=== PATIENT | male | born 1965 | race Caucasian/White ===

== ENCOUNTER 2017-03-08 11:34 | Emergency (ER) | payer BC, OTHER ==
[~2017-03-08] VITALS: Ht 172.7 cm; Wt 63.5 kg
[~2017-03-08 11:34] MED LIST: ATOR10 PO; CITA40 PO; DULO30 PO; METF500 PO; PANT40IN3 PO; QUET100 PO; TRAZ50TA78 PO; ZYPR10TA9 PO
[2017-03-08 11:36] VITALS: BP 200/103; PULSE 100; RESP 20; TEMP 98.4; O2SAT 100
--- NOTE | 2017-03-08 12:00 | PD ---
HPI Chief Complaint: Cold / Flu Symptoms Time Seen by Provider: 11:59 Travel History International Travel<30 days: No Contact w/Intl Traveler<30days: No Traveled to known affect area: No History of Present Illness HPI 52-year-old male with history of recurrent bronchitis, reflux, and type 2 diabetes, who presents with 2 week history of cough, off and on fevers, sinus congestion, postnasal drip, and reflux. Complains of increased shortness of breath with exertion as well as wheezing. Patient previously was using an albuterol inhaler but hasn't been for months. Patient also states she's been off his regular meds for several months due to moving from [facility] and not having insurance. Patient states his sore throat is usually worse first thing in the morning. He states she's been coughing up mostly clear to whitish phlegm. Patient continues to smoke a pack a day. He reports of fever of 101, last night. Patient has no known drug allergies. PFSH Past Medical History Anxiety: Yes Depression: Yes Heart Rhythm Problems: No Cardiac Catheterization: No Cardiovascular Problems: Yes (hyperlipidemia) High Cholesterol: No Congestive Heart Failure: No Diabetes: Yes Diminished Hearing: No Endocrine: Yes Genitourinary: No Herniated Disk: Yes (lower back) Immune Disorder: No Psychiatric: Yes Reproductive: No Respiratory: No Immunizations Current: Yes Past Surgical History Coronary Artery Bypass Graft: No Tonsillectomy: Yes Social History Alcohol Use: No Tobacco Use: Yes (02/20 PPD) Substance Use: No (Denies) Allergies-Medications (Allergen,Severity, Reaction): Coded Allergies: No Known Allergies (Unverified Adverse Reaction, Unknown, 03/08/17) Reported Meds & Prescriptions Reported Meds & Active Scripts Active Omeprazole 40 Mg Cap 40 Mg PO DAILY Ventolin Hfa 18 GM Inh (Albuterol Sulfate) 90 Mcg/Act Aer 2 Puff INH Q4-6H PRN Prednisone 20 Mg Tab 20 Mg PO DAILY 7 Days Azithromycin 250 Mg Tab 250 Mg PO DIRECTED Take 2 tabs (500 mg) on day 1 then 1 tab daily x 4 days. Reported Metformin (Metformin HCl) 500 Mg Tab 500 Mg PO BIDPC Atorvastatin (Atorvastatin Calcium) 10 Mg Tab 10 Mg PO HS Review of Systems Except as stated in HPI: all other systems reviewed are Neg General / Constitutional: Positive: Fever, Chills Eyes: No: Visual changes HENT: Positive: Headaches, Sore Throat, Rhinitis, Rhinorrhea, Congestion, No: Vertigo, Lightheadedness, Nosebleed, Neck Stiffness, Neck Pain, Dental Difficulties, Earache Cardiovascular: No: Chest Pain or Discomfort Respiratory: Positive: Cough, Shortness of Breath, Wheezing, No: Sneezing, Orthopnea Gastrointestinal: Positive: Dysphagia, No: Nausea, Vomiting, Diarrhea, Abdominal Pain, Indigestion, Loss of Appetite Genitourinary: No: Dysuria Musculoskeletal: No: Pain Skin: No Rash Neurologic: No: Weakness Psychiatric: No: Depression Endocrine: No: Polydipsia Hematologic/Lymphatic: No: Easy Bruising Physical Exam Narrative GENERAL: Patient appears in mild distress. SKIN: Warm and dry. Patient has mild pallor. Normal turgor. HEAD: Atraumatic. Normocephalic. EYES: Pupils equal and round. No scleral icterus. No injection or drainage. ENT: No nasal bleeding or discharge. Mucous membranes pink and moist. TMs are dull bilaterally but no injection. Patient has moderate sinus tenderness to palpation bilaterally. Posterior pharynx is slightly irritated no no significant erythema, tonsillitis, uvula is midline. Airway is patent. NECK: Trachea midline. No JVD. Supple and nontender without significant lymphadenopathy. CARDIOVASCULAR: Regular rate and rhythm. RESPIRATORY: No accessory muscle use. Clear to auscultation. Breath sounds equal bilaterally. GASTROINTESTINAL: Abdomen soft, non-tender, nondistended. Hepatic and splenic margins not palpable. MUSCULOSKELETAL: Extremities without clubbing, cyanosis, or edema. No obvious deformities. NEUROLOGICAL: Awake and alert. No obvious cranial nerve deficits. Motor grossly within normal limits. Five out of 5 muscle strength in the arms and legs. Normal speech. PSYCHIATRIC: Appropriate mood and affect; insight and judgment normal. Data Data Last Documented VS Vital Signs Date Time Temp Pulse Resp B/P (MAP) Pulse Ox O2 Delivery O2 Flow Rate FiO2 03/08/17 11:36 98.4 100 20 200/103 (135) 100 Room Air Orders Orders Complete Blood Count With Diff (03/08/17 12:08) Comprehensive Metabolic Panel (03/08/17 12:08) Urinalysis - C+S If Indicated (03/08/17 12:08) Iv Access Insert/Monitor (03/08/17 12:08) Ecg Monitoring (03/08/17 12:08) Oximetry (03/08/17 12:08) Oxygen Administration (03/08/17 12:08) Chest, Single Ap (03/08/17 12:08) Sodium Chloride 0.9% Flush (Ns Flush) (03/08/17 12:15) Methylprednisolone So Succ Inj (Solumedr (03/08/17 12:15) Albuterol-Ipratropium Neb (Duoneb Neb) (03/08/17 12:15) Ceftriaxone Inj (Rocephin Inj) (03/08/17 12:15) Azithromycin (Zithromax) (03/08/17 12:15) Labs Laboratory Tests Test 03/08/17 12:18 03/08/17 12:30 White Blood Count 6.5 TH/MM3 Red Blood Count 4.20 MIL/MM3 Hemoglobin 14.2 GM/DL Hematocrit 42.6 % Mean Corpuscular Volume 101.6 FL Mean Corpuscular Hemoglobin 33.9 PG Mean Corpuscular Hemoglobin Concent 33.4 % Red Cell Distribution Width 16.7 % Platelet Count 265 TH/MM3 Mean Platelet Volume 7.7 FL Neutrophils (%) (Auto) 59.5 % Lymphocytes (%) (Auto) 33.2 % Monocytes (%) (Auto) 6.7 % Eosinophils (%) (Auto) 0.3 % Basophils (%) (Auto) 0.3 % Neutrophils # (Auto) 3.9 TH/MM3 Lymphocytes # (Auto) 2.2 TH/MM3 Monocytes # (Auto) 0.4 TH/MM3 Eosinophils # (Auto) 0.0 TH/MM3 Basophils # (Auto) 0.0 TH/MM3 CBC Comment DIFF FINAL Differential Comment Blood Urea Nitrogen 9 MG/DL Creatinine 0.76 MG/DL Random Glucose 107 MG/DL Total Protein 8.5 GM/DL Albumin 3.4 GM/DL Calcium Level 9.2 MG/DL Alkaline Phosphatase 83 U/L Aspartate Amino Transf (AST/SGOT) 20 U/L Alanine Aminotransferase (ALT/SGPT) 15 U/L Total Bilirubin 0.3 MG/DL Sodium Level 138 MEQ/L Potassium Level 4.2 MEQ/L Chloride Level 105 MEQ/L Carbon Dioxide Level 26.4 MEQ/L Anion Gap 7 MEQ/L Estimat Glomerular Filtration Rate 107 ML/MIN Urine Color YELLOW Urine Turbidity CLEAR Urine pH 6.0 Urine Specific [place] 1.034 Urine Protein 30 mg/dL Urine Glucose (UA) NEG mg/dL Urine Ketones TRACE mg/dL Urine Occult Blood NEG Urine Nitrite NEG Urine Bilirubin NEG Urine Urobilinogen 2.0 MG/DL Urine Leukocyte Esterase NEG Urine RBC 3 /hpf Urine WBC 2 /hpf Urine Mucus MANY /lpf Microscopic Urinalysis Comment CULT NOT INDICATED MDM Medical Decision Making Medical Screen Exam Complete: Yes Emergency Medical Condition: Yes Medical Record Reviewed: Yes Differential Diagnosis Esophageal reflux disease. Pharyngitis. Sinusitis. Bronchitis. COPD with exacerbation. Wheezing. Narrative Course Patient is medically stable at time of exam. Labs ordered include CBC, CMP, and urinalysis. Labs are unremarkable. Chest x-ray shows no acute process per radiologist. Patient is given 125 mg Solu-Medrol IV as well as DuoNeb 3. Patient is given Rocephin 1000 mg IV. Patient feels improved after the above treatment. Patient is given 500 mg azithromycin by mouth now. Patient continued on azithromycin Dosepak. Patient continued on prednisone 20 mg daily for 7 days. Patient continued on albuterol metered-dose inhaler 2 puffs every 4-6 hours when necessary. Patient is given omeprazole 40 mg daily #30 Diagnosis Primary Impression: Acute wheezy bronchitis Additional Impressions: Esophageal reflux disease Qualified Codes: K21.9 - Gastro-esophageal reflux disease without esophagitis Tobacco abuse Referrals: [facility] Patient Instructions: Acute Bronchitis (ED), Diet for Stomach Ulcers and Gastritis (ED), General Instructions, How to Stop Smoking (DC), How to Use a Metered-Dose Inhaler (ED) Additional Instructions: Labs are unremarkable. Chest x-ray shows no acute process per radiologist. Patient is given 125 mg Solu-Medrol IV as well as DuoNeb 3. Patient is given Rocephin 1000 mg IV. Patient feels improved after the above treatment. Patient is given 500 mg azithromycin by mouth now. Patient continued on azithromycin Dosepak. Patient continued on prednisone 20 mg daily for 7 days. Patient continued on albuterol metered-dose inhaler 2 puffs every 4-6 hours when necessary. Patient is given omeprazole 40 mg daily #30 Med/Other Pt SpecificInfo: Prescription(s) given Scripts Omeprazole (Omeprazole) 40 Mg Cap 40 MG PO DAILY, #30 CAP 0 Refills Prov: Mt Colunga MD 03/08/17 Albuterol 18 GM Inh (Ventolin Hfa 18 GM Inh) 90 Mcg/Act Aer 2 PUFF INH Q4-6H Y for SHORTNESS OF BREATH, #1 INHALER 0 Refills Prov: Mt Colunga MD 03/08/17 Prednisone (Prednisone) 20 Mg Tab 20 MG PO DAILY for 7 Days, #7 TAB 0 Refills Prov: Mt Colunga MD 03/08/17 Azithromycin (Azithromycin) 250 Mg Tab 250 MG PO DIRECTED for Infection, #6 TAB 0 Refills Take 2 tabs (500 mg) on day 1 then 1 tab daily x 4 days. Prov: Mt Colunga MD 03/08/17 Disposition: 01 DISCHARGE HOME Condition: Stable Rafael De Dios Mar 08, 2017 12:00
[2017-03-08] MEDS ORDERED: METF500T PO (12:07)
[2017-03-08] MEDS ORDERED: ATOR10TA15 PO (12:07)
[2017-03-08] MEDS ORDERED: SODIUM CHLORIDE 0.9% FLUSH 10 ML FLUSH IVF PRN (12:15)
[2017-03-08] MEDS ORDERED: AZITHROMYCIN 250 MG TAB PO ONE (12:15)
[2017-03-08] MEDS ORDERED: cefTRIAXone INJ 1,000 MG in SODIUM CHLORIDE 0.9% INJ 100 ML IV ONE (12:15)
[2017-03-08] MEDS ORDERED: methylPREDNISolone SOD SUCC 125 MG/2 ML VIAL IV PUSH ONE (12:15)
[2017-03-08 12:32] LABS: AUTOMATED NEUTROPHIL # 3.9 TH/MM3 (1.8-7.7); BASOPHIL % 0.3 % (0.0-2.0); EOSINOPHIL % 0.3 % (0.0-4.0); HEMATOCRIT 42.6 % (39.0-51.0); HEMOGLOBIN 14.2 GM/DL (13.0-17.0); LYMPH % 33.2 % (9.0-44.0); LYMPHOCYTE # 2.2 TH/MM3 (1.0-4.8); MEAN CELL VOLUME 101.6 FL (80.0-100.0); MEAN CORPUSCULAR HEMOGLOBIN 33.9 PG (27.0-34.0); MEAN CORPUSCULAR HGB CONC 33.4 % (32.0-36.0); MEAN PLATELET VOLUME 7.7 FL (7.0-11.0); MONO % 6.7 % (0.0-8.0); MONOCYTE # 0.4 TH/MM3 (0-0.9); NEUT % 59.5 % (16.0-70.0); PLATELET COUNT 265 TH/MM3 (150-450); RED CELL DISTRIBUTION WIDTH 16.7 % (11.6-17.2); WHITE BLOOD COUNT 6.5 TH/MM3 (4.0-11.0)
--- NOTE | 2017-03-08 12:45 | RADRPT ---
EXAM DATE/TIME: 03/08/2017 12:37 [facility] COMPARISON: CHEST SINGLE AP, February 09, 2014, 10:54. CHEST SINGLE AP, August 05, 2015, 21:51. INDICATIONS : Cough and fever for 2 weeks. MEDICAL HISTORY : None. SURGICAL HISTORY : None. ENCOUNTER: Initial ACUITY: 2 weeks PAIN SCORE: 2/10 LOCATION: Bilateral chest FINDINGS: 2 AP erect portable views of the chest were obtained and demonstrates the lungs to be symmetrically a erated without evidence of mass, infiltrate or effusion. The cardiomediastinal contours are unremark able. Osseous structures are intact. Bilateral nipple shadow's are noted. CONCLUSION: Stable appearance with no evidence of pneumonia. Tae Pablo MD on March 08, 2017 at 12:41 Board Certified Radiologist. This report was verified electronically.
[2017-03-08] MEDS: RESP: ALBUTEROL 2.5 MG/IPRATROPIUM 0.5 MG NEB (SCH) INH (12:48)
[2017-03-08 12:58] LABS: ALBUMIN 3.4 GM/DL (3.4-5.0); ALT (GPT) 15 U/L (12-78); AST (GOT) 20 U/L (15-37); BICARBONATE 26.4 MEQ/L (21.0-32.0); BLOOD UREA NITROGEN 9 MG/DL (7-18); CALCIUM 9.2 MG/DL (8.5-10.1); CHLORIDE 105 MEQ/L (98-107); CREATININE 0.76 MG/DL (0.60-1.30); GLOMERULAR FILTRATION RATE 107 ML/MIN (>89); GLUCOSE,RANDOM 107 MG/DL (74-106); SODIUM (NA) 138 MEQ/L (136-145)
[2017-03-08 13:00] LABS: ALKALINE PHOSPHATASE 83 U/L (45-117); TOTAL BILIRUBIN ADULT 0.3 MG/DL (0.2-1.0); TOTAL PROTEIN 8.5 GM/DL (6.4-8.2)
[2017-03-08 13:16] LABS: BLOOD, URINE NEG (NEG); GLUCOSE,URINE NEG (NEG); KETONE, URINE TRACE mg/dL (NEG); MUCUS URINE MANY /lpf (OCC); NITRITE,URINE NEG (NEG); URINE COLOR YELLOW (YELLW/STRAW); URINE LEUKOCYTE ESTERASE NEG (NEG)
[2017-03-08 13:23] LABS: BILIRUBIN, URINE NEG (NEG)
[2017-03-08] MEDS ORDERED: VENTAER INH (13:29)
[2017-03-08] MEDS ORDERED: OMEP40CA2 PO (13:29)
[2017-03-08] MEDS ORDERED: AZIT250T3 PO (13:29)
[2017-03-08] MEDS ORDERED: PRED20 PO (13:29)
[2017-03-08 14:07] VITALS: BP 180/92; PULSE 85; RESP 16; O2SAT 98
== END 2017-03-08 14:12 | disposition home or self-care (01) ==
LOC: NEPD 11:34
DX: J20.9 Acute bronchitis, unspecified (principal); K21.9 Gastro-esophageal reflux disease without esophagitis; F17.210 Nicotine dependence, cigarettes, uncomplicated; E78.5 Hyperlipidemia, unspecified; E11.9 Type 2 diabetes mellitus without complications; Z79.84 Long term (current) use of oral hypoglycemic drugs
CPT/HCPCS: 71045; 80053; 81001; 85025; 94640; 94664; 96365; 96375; 99285; J0696; J2930

== ENCOUNTER 2017-06-25 13:54 | Inpatient (IN) | payer OTHER ==
[~2017-06-25] VITALS: Ht 172.7 cm; Wt 61.3 kg
[~2017-06-25 13:54] MED LIST changes: -ATOR10 PO; +ATOR10TA15 PO; +AZIT250T3 PO; -CITA40 PO; -DULO30 PO; -METF500 PO; +METF500T PO; +OMEP40CA2 PO; -PANT40IN3 PO; +PRED20 PO; -QUET100 PO; -TRAZ50TA78 PO; +VENTAER INH; -ZYPR10TA9 PO
[2017-06-25 14:26] VITALS: BP 114/61; PULSE 94; RESP 16; TEMP 98.9; O2SAT 100
[2017-06-25 15:30] VITALS: BP 113/77; PULSE 78; RESP 18; TEMP 99; O2SAT 99
[2017-06-25] MEDS ORDERED: GABA300C5 PO (15:37)
[2017-06-25] MEDS ORDERED: TRAZ100T10 PO (15:37)
[2017-06-25] MEDS ORDERED: OLANZ10 SL (15:37)
[2017-06-25] MEDS ORDERED: CELE20TA PO (15:37)
[2017-06-25 16:39] LABS: AUTOMATED NEUTROPHIL # 4.5 TH/MM3 (1.8-7.7); BASOPHIL # 0.1 TH/MM3 (0-0.2); BASOPHIL % 0.8 % (0.0-2.0); EOSINOPHIL # 0.1 TH/MM3 (0-0.4); EOSINOPHIL % 0.7 % (0.0-4.0); HEMATOCRIT 42.6 % (39.0-51.0); HEMOGLOBIN 14.3 GM/DL (13.0-17.0); LYMPH % 26.6 % (9.0-44.0); LYMPHOCYTE # 1.8 TH/MM3 (1.0-4.8); MEAN CORPUSCULAR HGB CONC 33.7 % (32.0-36.0); MONO % 7.1 % (0.0-8.0); MONOCYTE # 0.5 TH/MM3 (0-0.9); NEUT % 64.8 % (16.0-70.0); PLATELET COUNT 261 TH/MM3 (150-450); RED BLOOD COUNT 4.09 MIL/MM3 (4.50-5.90); RED CELL DISTRIBUTION WIDTH 15.6 % (11.6-17.2); WHITE BLOOD COUNT 6.9 TH/MM3 (4.0-11.0)
[2017-06-25 16:55] LABS: ALBUMIN 3.4 GM/DL (3.4-5.0); ALT (GPT) 15 U/L (12-78); AST (GOT) 21 U/L (15-37); BICARBONATE 27.9 MEQ/L (21.0-32.0); BLOOD UREA NITROGEN 13 MG/DL (7-18); CALCIUM 9.2 MG/DL (8.5-10.1); CHLORIDE 111 MEQ/L (98-107); CREATININE 1.01 MG/DL (0.60-1.30); GLOMERULAR FILTRATION RATE 77 ML/MIN (>89); GLUCOSE,RANDOM 90 MG/DL (74-106); SODIUM (NA) 145 MEQ/L (136-145)
[2017-06-25 17:06] LABS: ACETAMINOPHEN LESS THAN 2.0 MCG/ML (10.0-30.0); ALKALINE PHOSPHATASE 79 U/L (45-117); TOTAL BILIRUBIN ADULT 0.3 MG/DL (0.2-1.0); TOTAL PROTEIN 7.2 GM/DL (6.4-8.2)
--- NOTE | 2017-06-25 18:54 | PD ---
HPI Chief Complaint: Psychiatric Symptoms Time Seen by Provider: 18:44 Travel History International Travel<30 days: No Contact w/Intl Traveler<30days: No Traveled to known affect area: No History of Present Illness HPI 52-year-old male presents to the emergency department voluntarily for psychiatric evaluation. Says he is having suicidal and homicidal ideations 3 days. He says he has thought about slitting his wrist. He has history of suicidal attempt by overdosing and slitting his wrist. Has history of self cutting. His girlfriend moved him in and then kicked him out after for 5 days and then would not allow him to have his belongings. He is having thoughts of wanting to kill her. He says he does not have a plan yet. Denies auditory or visual hallucinations. Denies illicit drug use. Reports occasional alcohol use. Reports tobacco use. Aggravated by getting kicked out of his girlfriend' s house and for keeping his belongings. No known relieving factors. Symptoms are moderate to severe in severity. Onset 3 days ago. Duration chronic. No primary care provider. History of diabetes mellitus and takes metformin, and hypercholesterolemia. Denies other significant past medical history. No known allergies. Has no other medical complaints. No other modifying factors or associated signs and symptoms. PFSH Past Medical History Anxiety: Yes Depression: Yes Heart Rhythm Problems: No Cardiac Catheterization: No Cardiovascular Problems: Yes (hyperlipidemia) High Cholesterol: Yes Congestive Heart Failure: No Diabetes: Yes Diminished Hearing: No Endocrine: Yes Genitourinary: No Herniated Disk: Yes (lower back) Immune Disorder: No Psychiatric: Yes Reproductive: No Respiratory: No Immunizations Current: Yes Past Surgical History Coronary Artery Bypass Graft: No Tonsillectomy: Yes Social History Alcohol Use: No Tobacco Use: Yes (1/2 PPD) Substance Use: Yes Allergies-Medications (Allergen,Severity, Reaction): Coded Allergies: No Known Allergies (Unverified Adverse Reaction, Unknown, 06/25/17) Reported Meds & Prescriptions Reported Meds & Active Scripts Active Omeprazole 40 Mg Cap 40 Mg PO DAILY Ventolin Hfa 18 GM Inh (Albuterol Sulfate) 90 Mcg/Act Aer 2 Puff INH Q4-6H PRN Reported Celexa (Citalopram Hydrobromide) 20 Mg Tab 20 Mg PO DAILY Trazodone (Trazodone HCl) 100 Mg Tablet 100 Mg PO HS Gabapentin 300 Mg Cap 300 Mg PO TID Zyprexa Zydis (Olanzapine) 10 Mg Tab 10 Mg SL HS Metformin (Metformin HCl) 500 Mg Tab 500 Mg PO BIDPC Atorvastatin (Atorvastatin Calcium) 10 Mg Tab 10 Mg PO HS Review of Systems Except as stated in HPI: all other systems reviewed are Neg Physical Exam Narrative GENERAL: Well-nourished, well-developed male patient, in no acute distress SKIN: Warm and dry. HEAD: Atraumatic. Normocephalic. EYES: Pupils equal and round. ENT: Mucosa pink and moist. NECK: Supple. Trachea midline. CARDIOVASCULAR: Regular rate and rhythm. No murmur appreciated. RESPIRATORY: No accessory muscle use. Clear to auscultation. Breath sounds equal bilaterally. GASTROINTESTINAL: Abdomen soft, non-tender, nondistended. Hepatic and splenic margins not palpable. Bowel sounds are active 4 quadrants. MUSCULOSKELETAL: No obvious deformities. No clubbing. No cyanosis. No edema. BACK: No CVA tenderness. NEUROLOGICAL: Awake and alert. Oriented 3. No obvious cranial nerve deficits. Motor grossly within normal limits. Normal speech. Moves all extremities. 5/5 strength to all extremities. PSYCHIATRIC: No delusional thought processes. No hallucinations. Data Data Last Documented VS Vital Signs Date Time Temp Pulse Resp B/P (MAP) Pulse Ox O2 Delivery O2 Flow Rate FiO2 06/25/17 15:30 99.0 78 18 113/77 (89) 99 Room Air Orders Orders Psych Screen (06/25/17 14:44) Complete Blood Count With Diff (06/25/17 14:47) Comprehensive Metabolic Panel (06/25/17 14:47) Thyroid Stimulating Hormone (06/25/17 14:47) Drug Screen, Random Urine (06/25/17 14:47) Alcohol (Ethanol) (06/25/17 14:47) Salicylates (Aspirin) (06/25/17 14:47) Tylenol (Acetaminophen) (06/25/17 14:47) Diet Regular Basic (06/25/17 Dinner) Labs Laboratory Tests Test 06/25/17 16:10 06/25/17 16:20 White Blood Count 6.9 TH/MM3 Red Blood Count 4.09 MIL/MM3 Hemoglobin 14.3 GM/DL Hematocrit 42.6 % Mean Corpuscular Volume 104.0 FL Mean Corpuscular Hemoglobin 35.0 PG Mean Corpuscular Hemoglobin Concent 33.7 % Red Cell Distribution Width 15.6 % Platelet Count 261 TH/MM3 Mean Platelet Volume 7.0 FL Neutrophils (%) (Auto) 64.8 % Lymphocytes (%) (Auto) 26.6 % Monocytes (%) (Auto) 7.1 % Eosinophils (%) (Auto) 0.7 % Basophils (%) (Auto) 0.8 % Neutrophils # (Auto) 4.5 TH/MM3 Lymphocytes # (Auto) 1.8 TH/MM3 Monocytes # (Auto) 0.5 TH/MM3 Eosinophils # (Auto) 0.1 TH/MM3 Basophils # (Auto) 0.1 TH/MM3 CBC Comment DIFF FINAL Differential Comment Blood Urea Nitrogen 13 MG/DL Creatinine 1.01 MG/DL Random Glucose 90 MG/DL Total Protein 7.2 GM/DL Albumin 3.4 GM/DL Calcium Level 9.2 MG/DL Alkaline Phosphatase 79 U/L Aspartate Amino Transf (AST/SGOT) 21 U/L Alanine Aminotransferase (ALT/SGPT) 15 U/L Total Bilirubin 0.3 MG/DL Sodium Level 145 MEQ/L Potassium Level 4.1 MEQ/L Chloride Level 111 MEQ/L Carbon Dioxide Level 27.9 MEQ/L Anion Gap 6 MEQ/L Estimat Glomerular Filtration Rate 77 ML/MIN Thyroid Stimulating Hormone 3rd Gen 0.497 uIU/ML Salicylates Level 14.2 MG/DL Acetaminophen Level LESS THAN 2.0 MCG/ML Ethyl Alcohol Level LESS THAN 3 MG/DL Urine Opiates Screen NEG Urine Barbiturates Screen NEG Urine Amphetamines Screen NEG Urine Benzodiazepines Screen NEG Urine Cocaine Screen NEG Urine Cannabinoids Screen POS MDM Medical Decision Making Medical Screen Exam Complete: Yes Emergency Medical Condition: Yes Medical Record Reviewed: Yes Differential Diagnosis Encounter for psychological evaluation, suicidal ideation, homicidal ideation Narrative Course Patient presents voluntarily. Physical examination and vital signs are essentially unremarkable. Patient has no medical complaints to report. Psych screen has been ordered. If the laboratory results are unremarkable, the patient will be medically cleared for psychiatric evaluation and disposition. Diagnosis Primary Impression: Encounter for psychological evaluation Condition: Stable Lilian Linn June 25, 2017 18:54
--- NOTE | 2017-06-25 20:14 | PD ---
History of Present Illness Chief Complaint: Psychiatric Symptoms Time Seen by Provider: 19:05 Travel History International Travel<30 Days: No Contact w/Intl Traveler<30days: No Known affected area: No Legal Status Legal Status: Voluntary History of Present Illness: This is a 52-year-old single, male who presents to the emergency department voluntarily for reportedly feeling "homicidal and suicidal". Patient is known to this facility. He has an extensive mental health history and is followed outpatient at [facility]. Reviewed electronic medical record, labs, discussed case with staff. Patient was evaluated in his room and J pod. He was found awake, alert, and oriented x4. His speech is clear, logical, and organized. His mood is sad and his demeanor is sad. He reports that he has auditory hallucinations which are "I fight between good and bad". However, I cannot discern any internal stimulation. There also does not appear to be any thought blocking. He endorses suicidal ideation. He states that he has a history of frequent cutting. He states that he would "cut my wrists". When asked who his homicidal ideation is and he responds, "no one in particular". He does admit that he constantly has some suicidal and homicidal ideation however he reports that it has "been getting much worse recently". He states that he goes to start [employer], is compliant with his medications although he feels they are not working as well recently. He reports that he carries diagnoses of schizoaffective disorder, PTSD, anxiety, and suicidal/homicidal tendencies. When asked if he had ever acted on these tendencies he responded yes to the suicide and stated, "I have been acted on being homicidal yet". He reports multiple external stressors and states that he feels his worsening condition is as a result of "a culmination of stuff". He reports that there is a family history of suicide I advises that his "grandfather blow his brains out". Throughout the interview, patient was polite and interactive appropriately with his provider. [facility] Past Medical History Anxiety: Yes Depression: Yes Heart Rhythm Problems: No Cardiac Catheterization: No Cardiovascular Problems: Yes (hyperlipidemia) High Cholesterol: Yes Congestive Heart Failure: No Diabetes: Yes Diminished Hearing: No Endocrine: Yes Genitourinary: No Herniated Disk: Yes (lower back) Immune Disorder: No Psychiatric: Yes Reproductive: No Respiratory: No Immunizations Current: Yes Past Surgical History Coronary Artery Bypass Graft: No Tonsillectomy: Yes Psychiatric History Psychiatric History Multiple inpatient admissions. Followed up at [facility]. Reports diagnoses of schizoaffective disorder, PTSD, anxiety, and suicidal/homicidal tendencies. Patient states that he is compliant with his medications. Hx Psychiatric Treatment: [place], [place] History of Inpatient Treatment: Yes Social History Hx Alcohol Use: No Hx Tobacco Use: Yes (1/2 PPD) Hx Substance Use: Yes Substance Use Type: Nicotine/Cigarettes Other Substances Used: 1 ppd-etoh occasionally Hx of Substance Use Treatment: No Family Psychiatric History Reports that his grandfather committed suicide by gunshot wound. Allergies-Medications (Allergen,Severity, Reaction): Coded Allergies: No Known Allergies (Unverified Adverse Reaction, Unknown, 06/25/17) Reported Meds & Prescriptions Reported Meds & Active Scripts Active Omeprazole 40 Mg Cap 40 Mg PO DAILY Ventolin Hfa 18 GM Inh (Albuterol Sulfate) 90 Mcg/Act Aer 2 Puff INH Q4-6H PRN Reported Celexa (Citalopram Hydrobromide) 20 Mg Tab 20 Mg PO DAILY Trazodone (Trazodone HCl) 100 Mg Tablet 100 Mg PO HS Gabapentin 300 Mg Cap 300 Mg PO TID Zyprexa Zydis (Olanzapine) 10 Mg Tab 10 Mg SL HS Metformin (Metformin HCl) 500 Mg Tab 500 Mg PO BIDPC Atorvastatin (Atorvastatin Calcium) 10 Mg Tab 10 Mg PO HS Mental Status Examination Appearance: Appropriate Consciousness: Alert Orientation: x4 Motor Activity: Normal gait Speech: Unremarkable Language: Adequate Fund of Knowledge: Adequate Memory: Unremarkable Mood: Sad Affect: Sad Thought Process & Associations: Intact Thought Content: Appropriate Hallucination Type: Auditory Delusion Type: None Suicidal Ideation: Yes Suicidal Plan: Yes Suicidal Intention: No Homicidal Ideation: Yes Homicidal Plan: No Homicidal Intention: No Insight: Fair Judgment: Impulsive MDM Medical Decision Making Medical Record Reviewed: Yes Assessment/Plan This is a 52-year-old single, male who presents voluntarily to this facility for reportedly feeling "suicidal and homicidal". Patient is well- known to this facility with his last inpatient admission being August 2015. Upon examination today patient is alert and oriented x4. His mood and affect are sad. I can elicit no delusional material. He endorses suicide by cutting. He endorses homicide however he states that it is not addressed at anyone "particular". When asked if he has ever acted on either of these compulsions he stated that he "having acted on being homicidal yet". He does not appear to be internally stimulated this time although he claims to be experiencing auditory hallucinations which she describes as being "a fight between good and evil". While he does admit that he is constantly experiencing homicidal and suicidal ideation he reports that it is progressively getting worse of late he feels due to some external stressors. Given this patient's extensive mental health history and his endorsement of suicide and possibly homicide he will be admitted to the 2600 unit for further evaluation and treatment. I feel that the 2600 unit is appropriate as he has not shown any aggressive behaviors while here in J pod. Patient signed consents for medications. I have ordered all of his current daily medications. Psychotropic medications were confirmed with [facility]. Request HC Surrog/Guard Advoc?: No Orders Orders Psych Screen (06/25/17 14:44) Complete Blood Count With Diff (06/25/17 14:47) Comprehensive Metabolic Panel (06/25/17 14:47) Thyroid Stimulating Hormone (06/25/17 14:47) Drug Screen, Random Urine (06/25/17 14:47) Alcohol (Ethanol) (06/25/17 14:47) Salicylates (Aspirin) (06/25/17 14:47) Tylenol (Acetaminophen) (06/25/17 14:47) Diet Regular Basic (06/25/17 Dinner) Admit Order (Ed Use Only) (06/25/17 20:04) Admit To Inpatient Psych (06/25/17 ) Code Status (06/25/17 20:04) Vital Signs (Adult) DIALLO.Q12H.E (06/25/17 20:04) Activity Oob Ad Steph (06/25/17 20:04) Level Of Observation (Psych) (06/25/17 20:04) Acetaminophen (Tylenol) (06/25/17 20:15) Magnesium Hydroxide Liq (Milk Of Magnesi (06/25/17 20:15) Al-Mag Hy-Si 40-40-4 Mg/Ml Liq (Mag-Al P (06/25/17 20:15) Nicotine 21 Mg Patch.24 Hr (Habitrol 21 (06/25/17 20:15) Hydroxyzine Hcl (Atarax) (06/25/17 20:15) Basic Metabolic Panel (Bmp) (06/26/17 06:00) Lipid Profile (06/26/17 06:00) Hemoglobin (Hgb) A1c (06/26/17 06:00) Remove Old Patch (06/26/17 09:00) Albuterol Hfa Inh (Proair Hfa Inh) (06/25/17 20:15) Atorvastatin (Lipitor) (06/25/17 21:00) Citalopram (Celexa) (06/26/17 09:00) Gabapentin (Neurontin) (06/26/17 09:00) Metformin (Glucophage) (06/26/17 09:00) Olanzapine Odt (Zyprexa Zydis Odt) (06/25/17 21:00) (Nf) Omeprazole (06/26/17 09:00) (Nf) Trazodone (06/25/17 21:00) Results Vital Signs Date Time Temp Pulse Resp B/P (MAP) Pulse Ox O2 Delivery O2 Flow Rate FiO2 06/25/17 15:30 99.0 78 18 113/77 (89) 99 Room Air 06/25/17 14:26 98.9 94 16 114/61 (78) 100 Laboratory Tests Test 06/25/17 16:10 06/25/17 16:20 White Blood Count 6.9 Red Blood Count 4.09 Hemoglobin 14.3 Hematocrit 42.6 Mean Corpuscular Volume 104.0 Mean Corpuscular Hemoglobin 35.0 Mean Corpuscular Hemoglobin Concent 33.7 Red Cell Distribution Width 15.6 Platelet Count 261 Mean Platelet Volume 7.0 Neutrophils (%) (Auto) 64.8 Lymphocytes (%) (Auto) 26.6 Monocytes (%) (Auto) 7.1 Eosinophils (%) (Auto) 0.7 Basophils (%) (Auto) 0.8 Neutrophils # (Auto) 4.5 Lymphocytes # (Auto) 1.8 Monocytes # (Auto) 0.5 Eosinophils # (Auto) 0.1 Basophils # (Auto) 0.1 CBC Comment DIFF FINAL Differential Comment Blood Urea Nitrogen 13 Creatinine 1.01 Random Glucose 90 Total Protein 7.2 Albumin 3.4 Calcium Level 9.2 Alkaline Phosphatase 79 Aspartate Amino Transf (AST/SGOT) 21 Alanine Aminotransferase (ALT/SGPT) 15 Total Bilirubin 0.3 Sodium Level 145 Potassium Level 4.1 Chloride Level 111 Carbon Dioxide Level 27.9 Anion Gap 6 Estimat Glomerular Filtration Rate 77 Thyroid Stimulating Hormone 3rd Gen 0.497 Salicylates Level 14.2 Acetaminophen Level LESS THAN 2.0 Ethyl Alcohol Level LESS THAN 3 Urine Opiates Screen NEG Urine Barbiturates Screen NEG Urine Amphetamines Screen NEG Urine Benzodiazepines Screen NEG Urine Cocaine Screen NEG Urine Cannabinoids Screen POS Diagnosis Primary Impression: Schizoaffective disorder, depressive type Additional Impressions: Suicidal ideation Homicidal ideation Admitting Information Admitting Physician Requests: Admit Condition: Stable Problem Qualifiers Jessy Herman June 25, 2017 20:14
[2017-06-25] MEDS ORDERED: ALUMINUM/MAGNESIUM/SIMETH 30 ML CUP PO PRN (20:15)
[2017-06-25] MEDS ORDERED: ALBUTEROL SULFATE 90 MCG/ACT HFA 8 GM INHALER INH PRN (20:15)
[2017-06-25] MEDS: NICOTINE 21 MG/24 HR PATCH T-DERMAL SCH (20:15)
[2017-06-25] MEDS ORDERED: hydrOXYzine HCL 50 MG TAB PO PRN (20:15)
[2017-06-25] MEDS ORDERED: MAGNESIUM HYDROXIDE SUSP 30 ML CUP PO PRN (20:15)
[2017-06-25 22:00] VITALS: BP 124/64; PULSE 71; RESP 18; TEMP 98.1; O2SAT 99
[2017-06-25] MEDS: ATORVASTATIN 10 MG TAB PO SCH (23:05)
[2017-06-25] MEDS: traZODone HCL 100 MG TAB PO SCH (23:05)
[2017-06-25] MEDS: OLANZapine ODT 10 MG TAB SL SCH (23:05)
[2017-06-26 04:00] VITALS: BP 118/58; PULSE 77; RESP 18; TEMP 98.1
[2017-06-26 07:30] LABS: BICARBONATE 27.4 MEQ/L (21.0-32.0); BLOOD UREA NITROGEN 16 MG/DL (7-18); CALCIUM 9.1 MG/DL (8.5-10.1); CHLORIDE 107 MEQ/L (98-107); CHOLESTEROL 175 MG/DL (120-200); GLOMERULAR FILTRATION RATE 88 ML/MIN (>89); GLUCOSE,RANDOM 101 MG/DL (74-106); SODIUM (NA) 141 MEQ/L (136-145)
[2017-06-26 07:33] LABS: CHOLESTEROL/ HDL RATIO 3.27 RATIO; HDL CHOLESTEROL 53.5 MG/DL (40.0-60.0); LDL CHOLESTEROL 73 MG/DL (0-99); TRIGLYCERIDES 244 MG/DL (42-150)
[2017-06-26] MEDS: REMOVE OLD PATCH T-DERMAL SCH (09:00)
[2017-06-26] MEDS: NICOTINE 21 MG/24 HR PATCH T-DERMAL SCH (09:00)
[2017-06-26] MEDS: PANTOPRAZOLE SOD 40 MG DELAYED RELEASE TAB PO SCH (10:11)
[2017-06-26] MEDS: GABAPENTIN 300 MG CAP PO SCH ×3 (10:11→18:00)
[2017-06-26] MEDS: CITALOPRAM HYDROBROMIDE 20 MG TAB PO SCH (10:11)
[2017-06-26] MEDS: metFORMIN HCL 500 MG TAB PO SCH ×2 (10:12→18:00)
[2017-06-26] MEDS: ACETAMINOPHEN 325 MG TAB PO PRN ×2 (10:48→21:21)
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
[2017-06-26 16:15] LABS: HEMOGLOBIN A1C 5.4 % (4.3-6.0)
[2017-06-26] MEDS: OLANZapine ODT 10 MG TAB SL SCH (21:20)
[2017-06-26] MEDS: ATORVASTATIN 10 MG TAB PO SCH (21:20)
[2017-06-26] MEDS: traZODone HCL 100 MG TAB PO SCH (21:20)
[2017-06-27 06:32] VITALS: BP 104/58; PULSE 96; RESP 16; TEMP 98; O2SAT 98
[2017-06-27] MEDS: NICOTINE 21 MG/24 HR PATCH T-DERMAL SCH (09:00)
[2017-06-27] MEDS: REMOVE OLD PATCH T-DERMAL SCH (09:00)
[2017-06-27] MEDS: metFORMIN HCL 500 MG TAB PO SCH ×2 (09:42→18:00)
[2017-06-27] MEDS: GABAPENTIN 300 MG CAP PO SCH ×3 (09:42→18:00)
[2017-06-27] MEDS: PANTOPRAZOLE SOD 40 MG DELAYED RELEASE TAB PO SCH (09:42)
[2017-06-27] MEDS: CITALOPRAM HYDROBROMIDE 20 MG TAB PO SCH (09:42)
[2017-06-27] MEDS: ACETAMINOPHEN 325 MG TAB PO PRN ×2 (09:44→21:28)
--- NOTE | 2017-06-27 12:59 | HHI.PYPN ---
Subjective Remarks Patient seen for follow up; chart reviewed. Discussion with nursing staff reported that the patient had endorsed having suicidal ideation this morning. Patient was found lying on hospital bed, calm and cooperative. He states continuing feeling depressed due to recent stressors but feeling more hopeful after his son had contacted him and offered to have patient live with him in [place]. Patient reports feeling glad that he has support from his son and is wanting to move in with him. He reports having slept better, continues feeling depressed, trying to cope with negative thought, denies SI since this morning and denies any HI toward the ex-girlfriend at this time. Review of Systems Except as stated in HPI: all other systems reviewed are Neg Mental Status Examination Appearance: Appropriate Consciousness: Alert Orientation: x4 Motor Activity: Normal gait Speech: Unremarkable Language: Adequate Fund of Knowledge: Adequate Memory: Unremarkable Mood: Sad Affect: Sad Thought Process & Associations: Intact Thought Content: Appropriate Hallucination Type: Auditory Delusion Type: None Suicidal Ideation: Yes (intermittent) Suicidal Plan: Yes Suicidal Intention: No Homicidal Ideation: No (Denies today) Homicidal Plan: No Homicidal Intention: No Insight: Fair Judgment: Impulsive Results Vitals/IOs Vital Signs Date Time Temp Pulse Resp B/P (MAP) Pulse Ox O2 Delivery O2 Flow Rate FiO2 06/27/17 06:32 98.0 96 16 104/58 (73) 98 06/25/17 15:30 Room Air Intake and Output 06/27/17 06/27/17 06/28/17 08:00 16:00 00:00 Intake Total 240 ml Balance 240 ml Assessment & Plan Problem List: (1) Adjustment disorder with depressed mood ICD Codes: F43.21 - Adjustment disorder with depressed mood Assessment & Plan Patient continues with depressed mood and intermittent suicidal ideations but denies any homicidal ideations today. Patient to continue current treatment as was recently restarted on his regimen. Collateral information from patient's son. Continue to monitor mood and behavior. Discharge planning in progress. Justification for Cont. Inpt. At risk for further decompensation at lower level of care. Discharge Planning Patient to return to his residence upon stabilization. Request HC Surrog/Guard Advoc?: No Ignacio Kulkarni MD June 27, 2017 12:59
--- NOTE | 2017-06-27 14:24 | PD.TTN ---
Patient Problems 1. Discharge planning 2. Medication compliance 3. Knowledge deficit 4. Lack of coping skills Progress Toward Goals Provider Present: Dr. Toni Kulkarni (06/26/17- Pt. maybe discharged tomorrow.) Psychiatric Counselors Present: Ivelisse Celis LCSW (06/26/17- Pt. is coopeartive and has a place to go when discharged. Pt. is angry/agitated with HI/SI.) Group Spec/RT/OT/DAHL Present: HESHAM Drake (06/26/17- Pt. attends select groups and is appropriate.) Andi Muhammad June 27, 2017 14:24
[2017-06-27 18:09] VITALS: BP 139/76; PULSE 104; RESP 18; TEMP 98.4; O2SAT 98
[2017-06-27] MEDS: traZODone HCL 100 MG TAB PO SCH (21:25)
[2017-06-27] MEDS: ATORVASTATIN 10 MG TAB PO SCH (21:25)
[2017-06-27] MEDS: OLANZapine ODT 10 MG TAB SL SCH (21:25)
[2017-06-28 05:51] VITALS: BP 108/67; PULSE 77; RESP 16; TEMP 98; O2SAT 98
[2017-06-28] MEDS: CITALOPRAM HYDROBROMIDE 20 MG TAB PO SCH (08:48)
[2017-06-28] MEDS: PANTOPRAZOLE SOD 40 MG DELAYED RELEASE TAB PO SCH (08:48)
[2017-06-28] MEDS: GABAPENTIN 300 MG CAP PO SCH ×2 (08:48→13:00)
[2017-06-28] MEDS: metFORMIN HCL 500 MG TAB PO SCH (08:48)
[2017-06-28] MEDS: NICOTINE 21 MG/24 HR PATCH T-DERMAL SCH (08:59)
[2017-06-28] MEDS: REMOVE OLD PATCH T-DERMAL SCH (08:59)
[2017-06-28] MEDS ORDERED: OLANZ10 SL (13:27)
[2017-06-28] MEDS ORDERED: OMEP40CA2 PO (13:27)
[2017-06-28] MEDS ORDERED: ATOR10TA15 PO (13:27)
[2017-06-28] MEDS ORDERED: TRAZ100T10 PO (13:27)
[2017-06-28] MEDS ORDERED: METF500T PO (13:27)
[2017-06-28] MEDS ORDERED: CELE20TA PO (13:27)
[2017-06-28] MEDS ORDERED: GABA300C5 PO (13:27)
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
== END 2017-06-28 14:50 | disposition home or self-care (01) | DRG 881 ==
LOC: NEPJ 13:54 → NEDA 20:07 → H260 22:13
PROVIDERS: ADMIT Student in an Organized Health Care Education/Training Program; ATTEND Student in an Organized Health Care Education/Training Program
DX: F43.21 Adjustment disorder with depressed mood (principal); E11.9 Type 2 diabetes mellitus without complications; Z79.84 Long term (current) use of oral hypoglycemic drugs; E78.5 Hyperlipidemia, unspecified; F17.210 Nicotine dependence, cigarettes, uncomplicated; Z81.8 Family history of other mental and behavioral disorders
CPT/HCPCS: 80048; 80053; 80061; 80307; 83036; 84443; 85025; 99285

== ENCOUNTER 2017-11-12 04:19 | Inpatient (IN) ==
[2017-11-12] MEDS ORDERED: Tetanus/Diphtheria Toxoid Adult Vaccine Inj 0.5 ML Vial IM ONE (05:04)
[2017-11-12] MEDS ORDERED: clonazePAM 1 MG Tablet PO ONE (05:04)
[2017-11-12 05:12] LABS: Baso % (Auto) 0.4 % (0.0-2.0); Eos # (Auto) 0.2 th/mm3 (0.0-0.4); Eos % (Auto) 1.7 % (0.0-4.0); Hematocrit 42.7 % (39.0-51.0); Hemoglobin 14.4 gm/dL (13.0-17.0); Lymph # (Auto) 2.9 th/mm3 (1.0-4.8); Lymph % (Auto) 32.6 % (9.0-44.0); Mean Corpuscular HGB Conc 33.7 % (32.0-36.0); Mean Corpuscular Hemoglobin 34.4 pg (27.0-34.0); Mean Corpuscular Volume 101.8 fL (80.0-100.0); Mean Platelet Volume 7.3 fL (7.0-11.0); Mono # (Auto) 0.6 th/mm3 (0.0-0.9); Mono % (Auto) 7.1 % (0.0-8.0); Neut # (Auto) 5.3 th/mm3 (1.8-7.7); Neut % (Auto) 58.2 % (16.0-70.0); Platelet Count 280 th/mm3 (150-450); Red Cell Distribution Width 15.7 % (11.6-17.2)
--- NOTE | 2017-11-12 05:12 | ED ---
HPI General Chief Complaint: Psychiatric Symptoms Stated Complaint: psych screen/cass[facility] Time Seen by Provider: 11/12/17 04:47 Source: patient and police Mode of arrival: ambulatory Limitations: no limitations History of Present Illness HPI Narrative: 52-year-old white male presents emergency department under [place] act by PD. Patient performed suicide gesture cutting to his left arm with a razor. Patient states that he has a history of PTSD, depression, anxiety, type 2 diabetes, hypertension, hypercholesterolemia, GERD. The patient states that he has not taken his medicines for his diabetes, blood pressure cholesterol in over a year. He also now states that he has not taken his psych meds in almost 2 months. Over the last 1-2 weeks she has had increasing depression, hallucinations telling him to hurt himself or hurt others. Patient claims that he cannot get off from work to make his appointments. He denies any toxic ingestions. He states that he is overwhelmed with anxiety. He would like something for anxiety. Symptoms are moderate. No alleviating factors. Related Data Home Medications Medication Instructions Recorded Confirmed atorvastatin 40 mg PO DAILY 08/27/17 11/12/17 omeprazole 40 mg PO DAILY 08/27/17 11/12/17 quetiapine [Seroquel] 50 mg PO BID 08/27/17 11/12/17 trazodone 50 mg PO DAILY 08/27/17 11/12/17 Previous Rx's Medication Instructions Recorded diclofenac-misoprostol [Arthrotec] 1 tab PO BID #20 tab 08/27/17 methylprednisolone [Medrol (Pilo)] See Label Instructions PO PER PKG 08/27/17 DIR #21 each Allergies Allergy/AdvReac Type Severity Reaction Status Date / Time No Known Allergies Allergy Verified 08/27/17 08:58 Review of Systems ROS: all other systems reviewed are negative [facility] Medical History Medical History Anxiety (Acute) PTSD (post-traumatic stress disorder) (Acute) Depression (Acute) Diabetes (Acute) High cholesterol (Acute) Ulcer (Acute) Social History Social History Substance History: No History of Abuse Smoking Status: Current every day smoker Tobacco Type: Cigarettes How Often Do You Have a Drink Containing Alcohol: 2 to 3 times a week Recent Travel in [facility] within the Last 8 Weeks: No Recent Out of Country Travel within the Last 8 Weeks: No Immunization History Tetanus Immunization: <5 Years Hx Influenza Vaccine This Season: Yes Exam Narrative Exam Narrative: GENERAL: Well-nourished, well-developed patient. SKIN: Warm and dry. HEAD: Normocephalic and atraumatic. EYES: No scleral icterus. No injection or drainage. ENT: No nasal drainage noted. Mucous membranes pink. Airway patent. NECK: Supple, trachea midline. Moves head freely without obvious discomfort. CARDIOVASCULAR: Regular rate and rhythm without murmurs, gallops, or rubs. RESPIRATORY: Breath sounds equal bilaterally. No accessory muscle use. GASTROINTESTINAL: Abdomen soft, non-tender, nondistended. EXTREMITIES: No cyanosis or edema. BACK: Nontender without obvious deformity. No CVA tenderness. NEURO: Patient is alert and oriented. no sensorimotor deficits. Nonfocal. Normal speech. PSYCH: No delusions. Positive audit. Denies visual hallucinations. Course Initial Documented Vital Signs Temperature 97.8 F 11/12/17 04:47 Pulse Rate 105 H 11/12/17 04:47 Respiratory Rate 16 11/12/17 04:47 Blood Pressure 103/78 11/12/17 04:47 Pulse Oximetry 99 11/12/17 04:47 Last Documented Vital Signs Temperature 97.8 F 11/12/17 04:47 Pulse Rate 105 H 11/12/17 04:47 Respiratory Rate 16 11/12/17 04:47 Blood Pressure 103/78 11/12/17 04:47 Pulse Oximetry 99 11/12/17 04:47 Medical Decision Making MDM Narrative Medical decision making narrative: Routine laboratory testing for medical clearance. Patient is given Klonopin 1 mg p.o. for anxiety. Patient's wounds are cleansed and Steri-Stripped by the nursing staff. Medical Screen Exam Complete: Yes Emergency Medical Condition: Yes Differential Diagnosis Differential Diagnosis: MDM: High Differential diagnoses: Schizophrenia, schizoaffective disorder, bipolar, anxiety, depression, adjustment reaction, mood disorder NOS, ODD, depressive disorder NOS, dementia, dementia with agitation, psychosis NOS, substance induced mood disorder, DMDD, Asperger syndrome, infection,electrolyte abnormality, malingering. Mental health screening discussed with the patient. Psychiatric screen ordered. Lab Data Result diagrams: 11/12/17 04:50 11/12/17 04:50 Lab Results 11/12/17 11/12/17 11/12/17 Range/Units 04:50 04:50 04:53 WBC 9.0 (4.0-11.0) th/mm3 RBC 4.20 L (4.50-5.90) mil/mm3 Hgb 14.4 (13.0-17.0) gm/dL Hct 42.7 (39.0-51.0) % MCV 101.8 H (80.0-100.0) fL MCH 34.4 H (27.0-34.0) pg MCHC 33.7 (32.0-36.0) % RDW 15.7 (11.6-17.2) % Plt Count 280 (150-450) th/mm3 MPV 7.3 (7.0-11.0) fL Neut % (Auto) 58.2 (16.0-70.0) % Lymph % (Auto) 32.6 (9.0-44.0) % Kinney % (Auto) 7.1 (0.0-8.0) % Eos % (Auto) 1.7 (0.0-4.0) % Baso % (Auto) 0.4 (0.0-2.0) % Neut # (Auto) 5.3 (1.8-7.7) th/mm3 Lymph # (Auto) 2.9 (1.0-4.8) th/mm3 Kinney # (Auto) 0.6 (0.0-0.9) th/mm3 Eos # (Auto) 0.2 (0.0-0.4) th/mm3 Baso # (Auto) 0.0 (0.0-0.2) th/mm3 WBC Differential . Differential Comment Auto diff final Sodium 138 (136-145) meq/L Potassium 3.9 (3.5-5.1) meq/L Chloride 107 (98-107) meq/L Carbon Dioxide 24.0 (21.0-32.0) meq/L Anion Gap 7 (5-15) meq/L BUN 17 (7-18) mg/dL Creatinine 0.91 (0.60-1.30) mg/dL Estimated GFR 87 L (>89) mL/min Random Glucose 96 (74-106) mg/dL Calcium 9.2 (8.5-10.1) mg/dL Total Bilirubin 0.3 (0.2-1.0) mg/dL AST 18 (15-37) U/L ALT 18 (12-78) U/L Alkaline Phosphatase 81 (45-117) U/L Total Protein 8.1 (6.4-8.2) g/dL Albumin 3.9 (3.4-5.0) g/dL TSH 1.010 (0.358-3.740) uIU/mL Urine Opiates Screen Neg (Neg) Ur Barbiturates Screen Neg (Neg) Ur Amphetamines Screen Neg (Neg) U Benzodiazepines Scrn Neg (Neg) Urine Cocaine Screen Neg (Neg) U Cannabinoids Screen Neg (Neg) Serum Alcohol Less than 3 (0-5) mg/dL Discharge Plan Discharge Disposition Patient Disposition: 30 Still Patient Discharge Condition Condition: Stable Physicians Team ED Provider: Alicia Portillo ED Midlevel Provider: Nathan Polanco Primary Care Provider: Primary Care StephaniiCorrie Rxs /Orders / Referrals /Forms Prescriptions: No Action atorvastatin 40 mg Tablet 40 mg PO DAILY RF: 0 trazodone 50 mg Tablet 50 mg PO DAILY RF: 0 omeprazole 40 mg Capsule,Delayed Release(Dr/Ec) 40 mg PO DAILY RF: 0 quetiapine [Seroquel] 50 mg Tablet 50 mg PO BID RF: 0 diclofenac-misoprostol [Arthrotec 75] 75-200 mg-mcg tablet,IR,delayed rel, biphasic 1 tab PO BID Qty: 20 RF: 0 methylprednisolone [Medrol (Pilo)] 4 mg tablets,dose pack See Label Instructions PO PER PKG DIR Qty: 21 RF: 0 Status ED Status: Medically Cleared
[2017-11-12 05:22] LABS: Amphetamine Screen,Urine Neg (Neg); Barbiturate Screen,Urine Neg (Neg); Cannabinoid Screen,Urine Neg (Neg); Cocaine Screen,Urine Neg (Neg)
[2017-11-12 05:25] LABS: Opiate Screen,Urine Neg (Neg)
[2017-11-12 05:25] LABS: Albumin 3.9 g/dL (3.4-5.0); Anion Gap 7 meq/L (5-15); Aspartate Aminotransferase 18 U/L (15-37); Blood Urea Nitrogen 17 mg/dL (7-18); Calcium 9.2 mg/dL (8.5-10.1); Chloride 107 meq/L (98-107); Glomerular Filtration Rate 87 mL/min (>89); Glucose,Random 96 mg/dL (74-106); Potassium 3.9 meq/L (3.5-5.1); Sodium 138 meq/L (136-145)
[2017-11-12 05:26] LABS: Alanine Aminotransferase 18 U/L (12-78)
[2017-11-12 05:36] LABS: Alkaline Phosphatase 81 U/L (45-117); Total Protein 8.1 g/dL (6.4-8.2)
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
[2017-11-12] MEDS ORDERED: Aluminum/Magnesium/Simethacone Susp 30 ML UDC PO PRN (15:35)
[2017-11-12] MEDS ORDERED: LORazepam 1 MG Tablet PO PRN (15:35)
[2017-11-12] MEDS: DICLOFENAC MISOPROSTOL PO SCH (22:43)
[2017-11-13 06:35] LABS: Anion Gap 11 meq/L (5-15); Blood Urea Nitrogen 21 mg/dL (7-18); Calcium 8.9 mg/dL (8.5-10.1); Carbon Dioxide 27.5 meq/L (21.0-32.0); Chloride 106 meq/L (98-107); Cholesterol 189 mg/dL (120-200); Glomerular Filtration Rate Greater Than 89 mL/min (>89); Glucose,Random 96 mg/dL (74-106); Potassium 4.2 meq/L (3.5-5.1); Sodium 144 meq/L (136-145); Triglycerides 127 mg/dL (42-150)
[2017-11-13 06:38] LABS: Chol/HDL Ratio 3.95 Ratio; HDL Cholesterol 47.8 mg/dL (40.0-60.0); LDL Cholesterol,Calculated 116 mg/dL (0-99)
--- NOTE | 2017-11-13 11:14 | P.CON ---
History of Present Illness Service: [facility] Consult date: 11/13/17 Requesting Physician: Ignacio Kulkarni Reason for Consult: medical management Primary Care Provider: No Primary Care Physician Family Provider: No Primary Care Physician Chief Complaint: depression History of Present Illness: Patient is a 52-year-old male who is admitted under psychiatry service Hazel acted by police department apparently says he is depressed and going through "breakup". Patient states he has been with her for 3 years together. Patient tried to cut himself with razor and sustained some superficial lacerations on the right upper extremity left upper extremity. Patient states history of prior suicidal attempts in the past. Patient with history of hyperlipidemia chronic back pain states history of spinal stenosis, chronic headaches, depression, diabetes type 2 patient states he is on metformin. [facility] consulted for medical management. Patient currently appears in no distress just actually had a shower. He did not mention any Review of Systems No fever no nausea no vomiting per report history of chronic headache Denies any chest pain or shortness of breath No melena no hematochezia Denies any urinary symptoms No leg swelling reportedly states history of back pain chronic PMFSH - History History Provided By: Patient - Medical History Medical History: Medical History (Last Reviewed 11/12/17 @ 05:09 by AILEEN Garnica) Anxiety PTSD (post-traumatic stress disorder) Depression Diabetes High cholesterol Ulcer - Tobacco History Second Hand Smoke Exposure: No Tobacco Use In Past 30 Days: Yes Smoking Status: Current every day smoker Tobacco Type: Cigarettes - Alcohol History How Often Do You Have a Drink Containing Alcohol: Monthly or less - Substance Use History Substance History: Past History - Travel History Recent Travel in the [facility] Within the Last 8 Weeks: No Recent Travel Out of the Country Within the Last 8 Weeks: No - Immunization History Tetanus Immunization: <5 Years Tetanus Immunization Year if Known: 2014 Hx Influenza Vaccine This Season: No Medications and Allergies Active Medications: Active Medications Al Hydrox/Mg Hydrox/Simethicone (Mag-Al Plus Susp Liq) 30 ml PO Q6H PRN PRN Reason: DYSPEPSIA Al Hydroxide/Mg Hydroxide (Milk Of Magnesia Liq) 30 ml PO Q12H PRN PRN Reason: Mild Constipation Atorvastatin Calcium (Lipitor) 40 mg PO DAILY KAREN Last Admin: 11/13/17 08:53 Dose: 40 mg Hydroxyzine HCl (Atarax) 50 mg PO Q6H PRN PRN Reason: ANXIETY Non-Formulary Medication (Diclofenac-Misoprostol [Arthrotec 75]) 1 tab PO BID [facility] Last Admin: 11/12/17 22:43 Dose: Not Given Non-Formulary Medication (Omeprazole [Omeprazole]) 40 mg PO DAILY [facility] Quetiapine Fumarate (Seroquel) 50 mg PO BID [facility] Sennosides (Senokot) 17.2 mg PO Q12H PRN PRN Reason: Moderate Constipation Trazodone HCl (Desyrel) 50 mg PO [facility] Allergies Allergy/AdvReac Type Severity Reaction Status Date / Time No Known Allergies Allergy Verified 08/27/17 08:58 Home Medications Medication Instructions Recorded Confirmed Type atorvastatin 40 mg PO DAILY 08/27/17 11/12/17 History omeprazole 40 mg PO DAILY 08/27/17 11/12/17 History quetiapine [Seroquel] 50 mg PO BID 08/27/17 11/12/17 History trazodone 50 mg PO DAILY 08/27/17 11/12/17 History Physical Exam Vital signs: Vital Signs 11/12/17 16:02 11/12/17 19:20 11/13/17 05:35 Temperature 97.7 F 98.3 F 98.0 F Pulse Rate 90 82 80 Respiratory Rate 18 18 17 Blood Pressure 112/70 112/69 82/50 L Pulse Oximetry 95 95 95 Intake & Output 11/12/17 11/13/17 11/13/17 18:59 06:59 18:59 Weight 68.6 kg Other: Weight On Admission 68.6 kg Narrative: Awake alert no distress, cooperative and interactive Anicteric sclerae Boon palpebral conjunctivae no tonsillopharyngeal congestion neck was supple no JVD no bruit Chest lungs clear breath sounds no rales no wheezes Regular rhythm Abdomen soft nontender with good bowel sounds back no spinal tenderness no point tenderness Extremities no edema neurologic exam nonfocal gait steady Motor 5/5 in all extremities No sensory deficits Assessment and Plan - Plan 52-year-old male Depression Hazel act by police History of posttraumatic stress disorder Management per psychiatry Left upper extremity superficial cuts from suicidal attempt no signs of infection will monitor Shower daily History of hyperlipidemia Continue on Lipitor 40 at bedtime History of GERD. Continue on omeprazole 40 mg daily History of diabetes type 2. Reportedly on metformin at one time but not on the [place]. Will check hemoglobin A1c. Check blood sugars twice daily and record for now if elevated A1c restart his metformin at 500 mg twice a day History of chronic back pain/history of spinal stenosis Review old records will restart him on Neurontin. Smoker smokes 1 pack per day patient counseled. Thank you for this consult will follow patient in-house with the
[2017-11-13] MEDS ORDERED: Dextrose 50% in Water 50 ML Vial IV.PUSH PRN (11:35)
[2017-11-13] MEDS: QUEtiapine 25 MG Tablet PO SCH ×2 (12:20→21:26)
[2017-11-13] MEDS: DICLOFENAC MISOPROSTOL PO SCH (16:44)
[2017-11-13] MEDS: traZODone 50 MG Tablet PO SCH (21:26)
[2017-11-13] MEDS: Gabapentin 300 MG Capsule PO SCH (21:26)
[2017-11-13] MEDS: miSOPROStol 200 MCG Tablet PO SCH (21:44)
--- NOTE | 2017-11-13 22:42 | ECG ---
Date Performed: 11/13/2017 Time Performed: 13:35:03 PTAGE: 52 years EKG: Sinus rhythm NORMAL ECG PREVIOUS TRACING : 08/06/2015 00.09 Since the previous tracing, no significant change noted DOCTOR: Patricio Curtis Interpretating Date/Time 11/13/2017 22:41:07
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
--- NOTE | 2017-11-14 08:09 | P.PN ---
Subjective Interval history: Patient doing well overnight, FVS well. No overnight concerns per RN. Denies hx of DM. Physical Exam Vital signs: Vital Signs 11/13/17 17:27 11/14/17 05:50 Temperature 97.7 F 97.9 F Pulse Rate 82 78 Respiratory Rate 16 16 Blood Pressure 106/65 118/65 Pulse Oximetry 93 L 93 L Intake & Output 11/13/17 11/14/17 11/14/17 18:59 06:59 18:59 Intake Total 360 / 360 Balance 360 / 360 Weight 76.5 kg Intake: Oral 360 / 360 Narrative: GENERAL: well nourished male, in NAD SKIN: Warm and dry. LUE with superficial cuts healing well. HEENT: Normocephalic.No scleral icterus. No injection or drainage. MOM. NECK: Supple, trachea midline. No JVD or lymphadenopathy. CARDIOVASCULAR: Regular rate and rhythm without murmurs, gallops, or rubs. RESPIRATORY: Breath sounds equal bilaterally. No accessory muscle use. GASTROINTESTINAL: Abdomen soft, non-tender, nondistended. MUSCULOSKELETAL: No cyanosis, or edema. BACK: Nontender without obvious deformity. No CVA tenderness. Results - Labs CBC & Chem 7: 11/12/17 04:50 11/13/17 05:29 Laboratory Results - last 24 hr 11/13/17 11/13/17 11/13/17 05:29 16:05 22:27 POC Glucose 111 H 90 Hemoglobin A1c 6.0 Assessment and Plan - Assessment (1) Schizoaffective disorder Code(s): F25.9 - Schizoaffective disorder, unspecified Status: Acute (2) PTSD (post-traumatic stress disorder) Code(s): F43.10 - Post-traumatic stress disorder, unspecified Status: Acute (3) Diabetes Code(s): E11.9 - Type 2 diabetes mellitus without complications Status: Chronic - Plan This is a 52 y/o CM admitted for IP mgmt of Depression with Hazel act by police , [facility] consulted for IP mgmt, HD#3 1. History of post-traumatic stress disorder/Depression: Management per psychiatry, denies H/I ideation 2. Left upper extremity superficial cuts from suicidal attempt: no signs of infection will monitor, keep area clean and dry 3. HLD: cont. statin 4. GERD: cont. PPI. 5. DM Type II: HgbA1c 6%, cont. Metformin BID. BS 90, 127, 90 Cont. DM diet 6. History of chronic back pain/history of spinal stenosis: Cont. Neurontin 7. Smoker: counseled, encourage cessation. 8. DVT PPX: ambulatory Code Status: full Discussed Condition With: patient and RN
[2017-11-14] MEDS: Gabapentin 300 MG Capsule PO SCH ×2 (09:38→21:47)
[2017-11-14] MEDS: miSOPROStol 200 MCG Tablet PO SCH ×2 (09:38→21:47)
[2017-11-14] MEDS: QUEtiapine 25 MG Tablet PO SCH ×2 (09:39→18:13)
--- NOTE | 2017-11-14 16:36 | P.PNPSY ---
Subjective Remarks: Patient seen in day room with nurse Arcadio patient alert oriented calm cooperative pleasant having conversation with other patients. Though states his mood remains depressed and he continues suicidal with intent. He said he "might" take the suicide pill if offered. He also is requesting a nicotine patch. He also does acknowledge persistent auditory hallucinations was somewhat command nature we will also increase his Seroquel to 50 mg 3 times daily Review of Systems All other systems reviewed negative except as stated in HPI Mental Status Examination Appearance: Appropriate Consciousness: Alert Orientation: x4 Motor Activity: Normal gait Speech: Unremarkable Language: Adequate Fund of Knowledge: Adequate Attention and Concentration: Adequate Memory: Unremarkable Mood: Sad Affect: Appropriate (Depressed) Thought Process & Associations: Intact, Logical, Goal directed Thought Content: Appropriate Hallucination Type: Auditory Delusion Type: None Suicidal Ideation: Yes Suicidal Plan: No Suicidal Intention: No Homicidal Ideation: No Homicidal Plan: No Homicidal Intention: No Insight: Fair Judgment: Impulsive Assessment and Plan - Assessment (1) Schizoaffective disorder Code(s): F25.9 - Schizoaffective disorder, unspecified Status: Acute (2) PTSD (post-traumatic stress disorder) Code(s): F43.10 - Post-traumatic stress disorder, unspecified Status: Acute - Plan Plan: Patient remains depressed somewhat psychotic, vaguely suicidal. She medication adjustments above Justification for Continued Inpatient Stay: At this time patient would decompensate a place to a lower level of care (1) Schizoaffective disorder Qualifiers: Schizoaffective disorder type: depressive Qualified Code(s): F25.1 - Schizoaffective disorder, depressive type
[2017-11-14] MEDS: traZODone 50 MG Tablet PO SCH (21:47)
[2017-11-15] MEDS: miSOPROStol 200 MCG Tablet PO SCH ×2 (10:22→22:08)
[2017-11-15] MEDS: QUEtiapine 25 MG Tablet PO SCH ×2 (10:23→13:55)
[2017-11-15] MEDS: Gabapentin 300 MG Capsule PO SCH ×2 (10:23→22:08)
--- NOTE | 2017-11-15 14:26 | P.PNPSY ---
Subjective Remarks: Patient seen and miranda with nurse Micheline and medical student Yesika. Patient compliant medications. Patient states his sleep is still quite poor causing him to be somewhat angry irritable and labile during the day. He feels a Seroquel during the day is helping somewhat. But he needs increased dose at at bedtime. For now we will discontinue the 3 times daily Seroquel and add 50 mg p.o. at 8 AM and 2 PM and 100 mg at at bedtime Review of Systems All other systems reviewed negative except as stated in HPI Mental Status Examination Appearance: Appropriate Consciousness: Alert Orientation: x4 Motor Activity: Normal gait Speech: Unremarkable Language: Adequate Fund of Knowledge: Adequate Attention and Concentration: Adequate Memory: Unremarkable Mood: Sad, Irritable Affect: Other (Slight increased range and intensity) Thought Process & Associations: Intact, Logical, Goal directed Thought Content: Appropriate Hallucination Type: Auditory Delusion Type: None Suicidal Ideation: Yes Suicidal Plan: No Suicidal Intention: No Homicidal Ideation: No Homicidal Plan: No Homicidal Intention: No Insight: Fair Judgment: Impulsive Assessment and Plan - Assessment (1) Schizoaffective disorder Code(s): F25.9 - Schizoaffective disorder, unspecified Status: Acute (2) PTSD (post-traumatic stress disorder) Code(s): F43.10 - Post-traumatic stress disorder, unspecified Status: Acute - Plan Plan: Patient remained somewhat depressed with vague suicidal ideation and increased mood lability C medication adjustments above Justification for Continued Inpatient Stay: At this time patient would decompensate a place to a lower level of care Discharge Planning: To be determined (1) Schizoaffective disorder Qualifiers: Schizoaffective disorder type: depressive Qualified Code(s): F25.1 - Schizoaffective disorder, depressive type
[2017-11-15] MEDS ORDERED: QUEtiapine 100 MG Tablet PO SCH (21:00)
[2017-11-15] MEDS: traZODone 50 MG Tablet PO SCH (22:08)
[2017-11-16] MEDS: miSOPROStol 200 MCG Tablet PO SCH ×2 (09:39→20:43)
[2017-11-16] MEDS: Gabapentin 300 MG Capsule PO SCH ×2 (09:41→20:43)
[2017-11-16] MEDS: QUEtiapine 25 MG Tablet PO SCH ×2 (09:41→15:22)
[2017-11-16] MEDS: traZODone 100 MG Tablet PO SCH (20:43)
--- NOTE | 2017-11-16 22:13 | P.PNPSY ---
Subjective Remarks: Patient seen for follow, chart reviewed. Discussion with nursing staff reported the patient with no behavioral issues. Patient found sitting on hospital bed, calm and cooperative. states that he had been feeling irritable, endorsing SI, intermittent, daily. He states continually having AH telling him to hurt himself or other people. Report sleeping well. Review of Systems All other systems reviewed negative except as stated in HPI Mental Status Examination Appearance: Appropriate Consciousness: Alert Orientation: x4 Motor Activity: Normal gait Speech: Unremarkable Language: Adequate Fund of Knowledge: Adequate Attention and Concentration: Adequate Memory: Unremarkable Mood: Irritable Affect: Other (Slight increased range and intensity) Thought Process & Associations: Intact, Logical, Goal directed Thought Content: Appropriate Hallucination Type: Auditory Delusion Type: None Suicidal Ideation: Yes (intermittent) Suicidal Plan: No Suicidal Intention: No Homicidal Ideation: No Homicidal Plan: No Homicidal Intention: No Insight: Fair Judgment: Impulsive Assessment and Plan - Assessment (1) Schizoaffective disorder Code(s): F25.9 - Schizoaffective disorder, unspecified Status: Acute (2) PTSD (post-traumatic stress disorder) Code(s): F43.10 - Post-traumatic stress disorder, unspecified Status: Acute - Plan Plan: Patient continues with irritable mood, poor sleep and continued SI. Increase quetiapine to 50/50/200mg and add trazodone 100mg HS for sleep disturbance. Continue to monitor mood and behavior. Discharge planning in progress. Justification for Continued Inpatient Stay: At risk for further decompensation at lower level of care. (1) Schizoaffective disorder Qualifiers: Schizoaffective disorder type: depressive Qualified Code(s): F25.1 - Schizoaffective disorder, depressive type
[2017-11-17] MEDS: Gabapentin 300 MG Capsule PO SCH (08:40)
[2017-11-17] MEDS: miSOPROStol 200 MCG Tablet PO SCH (08:40)
[2017-11-17] MEDS: QUEtiapine 25 MG Tablet PO SCH ×2 (08:40→15:45)
--- NOTE | 2017-11-17 18:52 | P.PNPSY ---
Subjective Remarks: Reviewed electronic medical records and discussed case with staff. Follow-up was conducted in the hallway with LAUREEN Del Cid present. Patient's medications were increased yesterday. Today his nurse reports he has been happy, laughing, and jovial. He states that he is feeling "pretty good". His mood is good his affect is euthymic. He states that he slept and ate well. He is hopeful for discharge on Sunday. Mental Status Examination Appearance: Appropriate Consciousness: Alert Orientation: x4 Motor Activity: Normal gait Speech: Unremarkable Language: Adequate Fund of Knowledge: Adequate Attention and Concentration: Adequate Memory: Unremarkable Mood: Irritable Affect: Other (Slight increased range and intensity) Thought Process & Associations: Intact, Logical, Goal directed Thought Content: Appropriate Hallucination Type: Auditory Delusion Type: None Suicidal Ideation: Yes (intermittent) Suicidal Plan: No Suicidal Intention: No Homicidal Ideation: No Homicidal Plan: No Homicidal Intention: No Insight: Fair Judgment: Impulsive Assessment and Plan - Assessment (1) Schizoaffective disorder Code(s): F25.9 - Schizoaffective disorder, unspecified Status: Acute - Plan Plan: Patient will be reevaluated Sunday by the attending psychiatrist. Continue with current treatment plan. Justification for Continued Inpatient Stay: Moving this patient to a less restrictive environment would likely result in decompensation. (1) Schizoaffective disorder Qualifiers: Schizoaffective disorder type: depressive Qualified Code(s): F25.1 - Schizoaffective disorder, depressive type
[2017-11-18] MEDS: miSOPROStol 200 MCG Tablet PO SCH ×3 (00:56→22:20)
[2017-11-18] MEDS: traZODone 100 MG Tablet PO SCH ×2 (00:57→22:20)
[2017-11-18] MEDS: Gabapentin 300 MG Capsule PO SCH ×3 (00:57→22:21)
[2017-11-18 05:59] VITALS: RESP 17
[2017-11-18] MEDS: QUEtiapine 25 MG Tablet PO SCH ×2 (09:26→16:52)
--- NOTE | 2017-11-18 12:18 | P.PNPSY ---
Subjective Remarks: Reviewed electronic medical records and discussed case with staff. Follow-up was conducted in the patient's room with LAUREEN Del Cid present. Patient is euthymic. He states that he is feeling better a contributes this to a good night sleep. He is eating well. Cooperative and participating in unit activities. Social with other patients. Denies SI/HI. Review of Systems All other systems reviewed negative except as stated in HPI Mental Status Examination Appearance: Appropriate Consciousness: Alert Orientation: x4 Motor Activity: Normal gait Speech: Unremarkable Language: Adequate Fund of Knowledge: Adequate Attention and Concentration: Adequate Memory: Unremarkable Mood: Appropriate Affect: Appropriate Thought Process & Associations: Intact, Logical, Goal directed Thought Content: Appropriate Hallucination Type: Auditory Delusion Type: None Suicidal Ideation: No Suicidal Plan: No Suicidal Intention: No Homicidal Ideation: No Homicidal Plan: No Homicidal Intention: No Insight: Fair Judgment: Impulsive Assessment and Plan - Assessment (1) Schizoaffective disorder Code(s): F25.9 - Schizoaffective disorder, unspecified Status: Acute (2) PTSD (post-traumatic stress disorder) Code(s): F43.10 - Post-traumatic stress disorder, unspecified Status: Acute - Plan Plan: Patient will be reevaluated Sunday by the attending psychiatrist. Continue with current treatment plan. Justification for Continued Inpatient Stay: Moving patient to a less restrictive environment may result in his decompensation. (1) Schizoaffective disorder Qualifiers: Schizoaffective disorder type: depressive Qualified Code(s): F25.1 - Schizoaffective disorder, depressive type
[2017-11-18 17:27] VITALS: O2SAT 95
[2017-11-19 06:01] VITALS: BP 92/55; PULSE 70; TEMP 97.3
[2017-11-19] MEDS: QUEtiapine 25 MG Tablet PO SCH (08:45)
[2017-11-19] MEDS: Gabapentin 300 MG Capsule PO SCH (08:45)
[2017-11-19] MEDS: miSOPROStol 200 MCG Tablet PO SCH (08:46)
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
== END 2017-11-19 16:05 | disposition home or self-care (01) ==
LOC: NEPD 04:19 → NEDA 15:35 → H260 16:14
PROVIDERS: ADMIT Student in an Organized Health Care Education/Training Program; ATTEND Student in an Organized Health Care Education/Training Program